=== PATIENT | female | born 1980 | race Caucasian/White ===

== ENCOUNTER 2021-04-01 15:01 | Emergency (ER) | payer BC ==
[2021-04-01] MEDS ORDERED: EPIPEN 2-P0.3 MG/0.3 INJ (17:35)
[2021-04-01] MEDS ORDERED: PREDNISONE50 MG PO (17:35)
[2021-04-01] MEDS ORDERED: BENADRYL 25MG C25 MG PO (17:35)
[2021-04-01] MEDS ORDERED: PEPCID40 MG PO (17:35)
== END 2021-04-01 18:00 | disposition home or self-care (01) ==
LOC: ER1 15:01
DX: T78.1XXA Other adverse food reactions, not elsewhere classified, initial encounter (principal); E03.9 Hypothyroidism, unspecified; Z88.2 Allergy status to sulfonamides
CPT/HCPCS: 96365; 96375; 99284; J1200; J2930